=== PATIENT | male | born 1945 | race Caucasian/White ===

== ENCOUNTER 2018-07-27 15:22 | Emergency (ER) | payer MEDICARE, OTHER ==
[2018-07-27] MEDS ORDERED: NS 1,000 ML IV ONE (15:28)
[2018-07-27] MEDS ORDERED: NITROGLYCERIN 0.4 MG BTL SL ONE (15:28)
[2018-07-27] MEDS ORDERED: HEPARIN 10,000 UNIT/10 ML MDV (1,000 UNIT/ML) IVP ONE (15:29)
[2018-07-27] MEDS ORDERED: ASPIRIN 81 MG CHEWABLE TAB PO ONE (15:29)
[2018-07-27] MEDS ORDERED: DILTIAZEM 125 MG/25 ML VIAL IV ONE (15:35)
[2018-07-27] MEDS ORDERED: DILTIAZEM 25 MG/5 ML VIAL IVP ONE (15:59)
--- NOTE | 2018-07-27 16:55 | EDPHY ---
H & P Stated Complaint: chest pain Time Seen by Provider: 07/27/18 15:40 HPI/ROS: 73 yo M presents complaining of presents complaining of substernal and left- sided chest pain that began while watching his granddaughter's recital. He states earlier today he also had a very brief episode of what he thought was heartburn. He has mild shortness of breath, he denies nausea vomiting or diaphoresis. He consider just resting in his car rather than coming to the emergency department. Review of systems As per HPI General no fever no chills no weakness HEENT no eye pain no eye discharge. No eye redness, no sore throat Respiratory no cough, positive shortness of breath Cardiac positive chest pain, no peripheral edema GI no abdominal pain, no diarrhea, no constipation, no nausea, no vomiting no flank pain, no hematuria, no dysuria Musculoskeletal no myalgias, no joint pain Heme no easy bruising, no easy bleeding Endo no polyuria, no polydipsia Skin no rashes, no pruritus Neuro no syncope, no dizziness, no headaches Psych is no suicidal ideation, no homicidal ideation Source: Patient, Family Exam Limitations: No limitations - Personal History Current Tetanus Diphtheria and Acellular Pertussis (TDAP): Yes - Medical/Surgical History Hx Asthma: No Hx Chronic Respiratory Disease: No Hx Diabetes: Yes Hx Cardiac Disease: Yes Hx Renal Disease: No Hx Cirrhosis: No Hx Alcoholism: No Hx HIV/AIDS: No Hx Splenectomy or Spleen Trauma: No Other PMH: Hypertension, hyperlipidemia, diabetes type 2 - Family History Significant Family History: No pertinent family hx - Social History Smoking Status: Unknown if ever smoked Alcohol Use: None Drug Use: None - Physical Exam Exam: 73-year-old male alert and oriented in moderate distress secondary to substernal chest pain, no diaphoresis HEENT atraumatic normocephalic, extraocular muscles intact, anicteric Oropharynx negative for erythema negative exudate, tolerating her own secretions Neck supple no meningismus Lungs clear to auscultation bilaterally Heart regular rate and rhythm without murmur rub or gallop Abdomen nondistended normoactive bowel sounds soft nontender Back no CVA tenderness, no step-offs, no spinal tenderness Extremities no cyanosis clubbing or edema Neuro alert and oriented, no focal deficits Medical Decision Making ED Course/Re-evaluation: Patient seen and evaluated for chest pain Initial EKG with inferior leads with ST elevation, consistent with a STEMI Requested ambulance because immediately Patient given 4 baby aspirin, 1 sublingual nitroglycerin initially was significant pain relief, heparin 4000 IV push Morphine 2 mg repeated x1 Patient initially with some chest pain relief and then chest pain returned At the point that chest pain appeared to worsen patient showed a new rhythm of atrial fibrillation with a rapid ventricular rate Patient was given diltiazem 10 mg IV push Ambulance arrived Patient immediately transported to [facility] with acute STEMI I contacted the ED physician currently working, Dr. Pradeep Dawn and gave him report. Differential Diagnosis: stemi, nstemi, pulm embolus, gerd - Data Points Laboratory Results: 07/27/18 15:27 POC Troponin I 0.48 ng/mL H ng/mL (0.00-0.08) Medications Given: Discontinued Medications Aspirin (Aspirin) 324 mg PO EDNOW ONE Stop: 07/27/18 15:30 Last Admin: 07/27/18 15:22 Dose: 324 mg Diltiazem HCl (Cardizem 25 Mg/5 Ml Vial) 10 mg IVP EDNOW ONE Stop: 07/27/18 16:00 Last Admin: 07/27/18 15:36 Dose: 10 mg Heparin Sodium (Porcine) (Heparin Injection) 4,000 unit IVP EDNOW ONE Stop: 07/27/18 15:30 Last Admin: 07/27/18 15:27 Dose: 4,000 mg Sodium Chloride (Ns) 1,000 mls @ 0 mls/hr IV ONCE ONE PRN Reason: Wide Open Stop: 07/27/18 15:29 Last Admin: 07/27/18 15:25 Dose: 1,000 mls Morphine Sulfate (Morphine) 2 mg IVP EDNOW ONE Stop: 07/27/18 15:28 Last Admin: 07/27/18 15:24 Dose: 2 mg Nitroglycerin (Nitrostat) 0.4 mg SL EDNOW ONE Stop: 07/27/18 15:29 Last Admin: 07/27/18 15:25 Dose: 0.4 mg Point of Care Test Results: Chemistry 07/27/18 15:27 POC Troponin I 0.48 ng/mL H ng/mL (0.00-0.08) Departure - Departure Disposition: Acute Care Hospital Not [facility] Clinical Impression: AMI inferior wall Condition: Critical Referrals: NONE *PRIMARY CARE P,. [Primary Care Provider] - As per Instructions
[2018-07-27 18:00] VITALS: BP 145/97
--- NOTE | 2018-08-04 22:52 | CPEKG ---
Test Reason : OPEN Blood Pressure : / mmHG Vent. Rate : 110 BPM Atrial Rate : 188 BPM P-R Int : 187 ms QRS Dur : 113 ms QT Int : 363 ms P-R-T Axes : 000 036 079 degrees QTc Int : 492 ms Atrial fibrillation Incomplete left bundle branch block Inferoposterior infarct, acute (LCx) Confirmed by Cherry Triplett ([id number]) on 08/04/2018 10:52:29 PM Referred By: Confirmed By:Cherry Triplett
--- NOTE | 2018-08-04 22:52 | CPEKG ---
Test Reason : OPEN Blood Pressure : / mmHG Vent. Rate : 083 BPM Atrial Rate : 083 BPM P-R Int : 180 ms QRS Dur : 109 ms QT Int : 384 ms P-R-T Axes : 072 046 092 degrees QTc Int : 452 ms Sinus rhythm Ventricular premature complex Incomplete left bundle branch block Posterior infarct, acute (LCx) ST elevation, consider inferior injury ST depression V1-V3, suggest recording posterior leads Confirmed by Cherry Triplett ([id number]) on 08/04/2018 10:52:11 PM Referred By: Confirmed By:Cherry Triplett
== END 2018-07-27 15:41 | disposition short-term general hospital (02) ==
LOC: CED 15:22
DX: R07.9 Chest pain, unspecified (principal)
CPT/HCPCS: 93005; 96361; 96374; 96375; J1644; J2270; 84484-PO